=== PATIENT | male | born 1945 | race Caucasian/White ===

== ENCOUNTER 2024-10-24 10:54 | Emergency (ER) | payer MEDICARE ==
[~2024-10-24] VITALS: Ht 180.3 cm; Wt 67.0 kg
[2024-10-24 11:58] LABS: URINE BILIRUBIN - DIPSTICK Negative (NEGATIVE); URINE BLOOD DIPSTICK Large (NEGATIVE); URINE COLOR Bloody; URINE GLUCOSE - DIPSTICK Negative (NEGATIVE); URINE KETONE Trace mg/dL (NEGATIVE); URINE LEUK ESTERASE Negative (NEGATIVE); URINE NITRITE - DIPSTICK Negative (Negative); URINE PROTEIN - DIPSTICK >=300 mg/dL (NEG-TRACE); URINE SPECIFIC GRAVITY >=1.030; URINE UROBILINOGEN - DIPSTICK 0.2 E.U./dL (0.2)
[2024-10-24 11:59] LABS: URINE EPITHELIAL CELLS FEW EPI/hpf (0-FEW); URINE RBC >100 RBC/hpf (0-5)
[2024-10-24 12:01] VITALS: BP 175/85
[2024-10-24] MEDS ORDERED: ISOVUE-300 (Iopamidol) 100 ML SDV IV ONE (12:40)
[2024-10-24 13:04] LABS: BASO% 0.8 % (0-3); EOS% 0.2 % (0-8); HEMATOCRIT 49.1 % (39.0-50.0); HEMOGLOBIN 16.7 g/dl (14.0-18.0); IMMATURE GRANULOCYTES 0.1 % (0.0-5.0); LYMPH% 16.2 % (15-41); MEAN CELL VOLUME 88.9 fL CALC (80.0-100.0); MEAN CORPUSCULAR HGB 30.3 pG CALC (26.0-32.0); NEUT# 6.67 thou/uL (1.82-7.42); NEUT% 77.7 % (42-76); RED BLOOD COUNT 5.52 mill/uL (4.70-6.10); RED CELL DISTRI WIDTH 11.8 % (11.5-15.5)
[2024-10-24 13:12] VITALS: BP 160/83
[2024-10-24 13:20] LABS: ALBUMIN 4.8 g/dL (3.2-5.0); BILIRUBIN, TOTAL 0.7 mg/dL (0.2-1.3); POTASSIUM 4.5 mmol/l (3.5-5.1)
[2024-10-24 13:38] LABS: PROTHROMBIN TIME 11.1 SECONDS (9.0-12.5)
[2024-10-24] MEDS ORDERED: BACTRIM DS1 TAB PO (15:23)
[2024-10-24 15:42] VITALS: BP 160/83
== END 2024-10-24 15:55 | disposition home or self-care (01) ==
LOC: ED 10:54
PROVIDERS: Family Medicine; Nurse Practitioner
DX: R31.9 Hematuria, unspecified (principal); Z87.442 Personal history of urinary calculi
CPT/HCPCS: Q9967